=== PATIENT | female | born 1980 | race African-American/Black ===

== ENCOUNTER → 2016-07-17 | Outpatient (REF) | payer OTHER ==
[~2016-07-17] MED LIST: NEUR800T PO; SOMA350T PO; SYNT175T2 PO
[2016-07-17 12:14] LABS: FREE T4 0.64 NG/DL (0.76-1.46)
== END ==
LOC: M LABDRAW1 11:33
PROVIDERS: ATTEND Physician Assistant Medical
DX: E89.0 Postprocedural hypothyroidism (principal)

== ENCOUNTER → 2016-09-12 | Outpatient (REF) | payer OTHER ==
[2016-09-12 13:11] LABS: FREE T4 0.62 NG/DL (0.76-1.46)
== END ==
LOC: M LABDRAW1 12:13
PROVIDERS: ATTEND Physician Assistant Medical
DX: E89.0 Postprocedural hypothyroidism (principal)

== ENCOUNTER → 2016-11-23 | Outpatient (CLI) | payer OTHER ==
[2016-11-23 13:56] LABS: FREE T4 0.6 NG/DL (0.76-1.46)
[2016-11-23 14:25] LABS: CORTISOL AM 8.9 UG/DL (4.3-22.4)
== END ==
LOC: M SMT 10:19
PROVIDERS: ATTEND Internal Medicine Endocrinology, Diabetes & Metabolism
DX: E89.0 Postprocedural hypothyroidism (principal)